=== PATIENT | female | born 1970 | race Caucasian/White ===

== ENCOUNTER 2020-07-12 07:01 | Emergency (ER) | payer BC ==
[~2020-07-12] VITALS: Ht 175.3 cm; Wt 109.1 kg
[2020-07-12 07:25] VITALS: BP 135/88
[2020-07-12] MEDS ORDERED: HYDROcodone/acetaminophen 5mg/325mg tablet PO ONE (07:25)
== END 2020-07-12 07:48 | disposition home or self-care (01) ==
LOC: ER 07:02
DX: S60.212A Contusion of left wrist, initial encounter (principal); M25.532 Pain in left wrist; Z79.899 Other long term (current) drug therapy; W18.39XA Other fall on same level, initial encounter; Y93.89 Activity, other specified; Y92.89 Other specified places as the place of occurrence of the external cause; Y99.8 Other external cause status
CPT/HCPCS: 29125; 73110; 99284

== ENCOUNTER 2020-07-14 08:19 | Emergency (ER) | payer BC ==
[~2020-07-14] VITALS: Ht 175.3 cm; Wt 114.0 kg
[2020-07-14 10:26] VITALS: BP 138/100
== END 2020-07-14 10:28 | disposition home or self-care (01) ==
LOC: ER 08:20
DX: S60.852A Superficial foreign body of left wrist, initial encounter (principal); M25.531 Pain in right wrist; Z79.899 Other long term (current) drug therapy; W19.XXXA Unspecified fall, initial encounter; Y93.89 Activity, other specified; Y92.89 Other specified places as the place of occurrence of the external cause; Y99.8 Other external cause status
CPT/HCPCS: 29125; 73110; 99283

== ENCOUNTER 2021-09-17 05:31 | Emergency (ER) | payer BC, OTHER ==
[~2021-09-17] VITALS: Ht 175.3 cm; Wt 113.6 kg
[2021-09-17 05:40] VITALS: BP 136/99
== END 2021-09-17 06:42 | disposition left against medical advice (07) ==
LOC: ER 05:32
DX: F29 Unspecified psychosis not due to a substance or known physiological condition (principal); Z76.0 Encounter for issue of repeat prescription; Z53.21 Procedure and treatment not carried out due to patient leaving prior to being seen by health care provider